=== PATIENT | female | born 1985 | race Caucasian/White ===

== ENCOUNTER 2020-07-05 21:27 | Emergency (ER) | payer OTHER ==
[2020-07-05] MEDS ORDERED: NORCO 5-325 TA1 EACH PO (23:04)
[2020-07-05] MEDS ORDERED: IBUPROFEN800 MG PO (23:04)
== END 2020-07-05 23:30 | disposition home or self-care (01) ==
LOC: FER 21:27
DX: S93.402A Sprain of unspecified ligament of left ankle, initial encounter (principal); Z88.0 Allergy status to penicillin; X50.1XXA Overexertion from prolonged static or awkward postures, initial encounter; Y92.009 Unspecified place in unspecified non-institutional (private) residence as the place of occurrence of the external cause
CPT/HCPCS: 73610; 73630; J1885

== ENCOUNTER 2021-12-03 18:04 | Emergency (ER) | payer OTHER ==
[~2021-12-03 18:04] MED LIST: IBUPROFEN800 MG PO; NORCO 5-325 TA1 EACH PO
[2021-12-03 18:37] LABS: BILIRUBIN NEGATIVE (NEGATIVE); BLOOD 3+ Ery/uL (NEGATIVE); CLARITY CLEAR (CLEAR); COLOR YELLOW (YELLOW); GLUCOSE (U) NORMAL (NORMAL); LEUKOCYTES 3+ Leu/uL (NEGATIVE); NITRITE POSITIVE (NEGATIVE); PROTEIN 2+ mg/dL (NEGATIVE); UROBILINOGEN 0.2 mg/dL (0.2-1.0); pH 6.5 (5.0-9.0)
[2021-12-03 19:12] LABS: BACTERIA 1+; URINARY RBC TNTC
[2021-12-03 19:49] LABS: BASOPHIL 0.5 % (0-2); EOSINOPHIL 2.1 % (0-5); HCT 39.7 % (37.0-47.0); HGB 13.3 g/dl (12.5-16.0); LYMPHOCYTE 21.2 % (15-48); MCH 27.9 pg (25.0-31.0); MCHC 33.5 g/dL (32.0-36.0); MCV 83.2 fL (78.0-100.0); MONOCYTE 6.5 % (0-12); MPV 9.2 fL (6.0-9.5); NEUTROPHIL 69.1 % (41-80); NRBC 0; PLT 313 K/uL (150-400); RBC 4.77 M/uL (4.20-5.40); RDW 12.1 % (11.5-14.0); WBC 12.4 K/uL (4.0-10.5)
[2021-12-03 20:00] LABS: ALBUMIN 3.7 g/dL (3.4-5.0); BILIRUBIN - TOTAL 0.2 mg/dL (0.2-1.0); BUN/CREAT RATIO (CALC) 12.7 RATIO; CREATININE 0.79 mg/dL (0.51-0.95); GLOBULIN (CALCULATION) 3.7 g/dL; POTASSIUM 3.9 mmol/L (3.5-5.1); TOTAL PROTEIN 7.4 g/dL (6.4-8.2)
[2021-12-03] MEDS ORDERED: NAPROXEN500 MG PO (23:29)
[2021-12-03] MEDS ORDERED: ONDANSETRON ODT4 MG PO (23:29)
[2021-12-03] MEDS ORDERED: PERCOCET 5-3251 EACH PO (23:29)
[2021-12-03] MEDS ORDERED: BACTRIM DS TAB1 EACH PO (23:30)
== END 2021-12-03 23:44 | disposition home or self-care (01) ==
LOC: FER 18:04
PROVIDERS: Emergency Medicine
DX: N39.0 Urinary tract infection, site not specified (principal); I10 Essential (primary) hypertension; Z88.0 Allergy status to penicillin
CPT/HCPCS: 36415; 80053; 81001; 85025; 87076; 87088; 87186; J1170; J2185; J2405; J7120